=== PATIENT | female | born 1960 | race Caucasian/White ===

== ENCOUNTER 2017-05-29 13:29 | Emergency (ER) | END 2017-05-29 16:21 | disposition home or self-care (01) ==

== ENCOUNTER 2018-07-08 23:34 | Emergency (ER) | payer OTHER ==
[~2018-07-08] VITALS: Ht 172.7 cm; Wt 103.1 kg
[~2018-07-08 23:34] MED LIST: HYDR-4011 PO; NAPR-985 PO
[2018-07-08 23:37] VITALS: Ht 172.7 cm; Wt 103.1 kg
--- NOTE | 2018-07-09 00:10 | ERD ---
ER Documentation Chief Complaint Chief Complaint L leg pain/swelling x2 weeks, worse x1 day HPI This is a 57-year-old woman with a history of left leg ORIF complaining of posterior left leg pain localized mostly to the left popliteal fossa. She states she is noticed some swelling but no redness, no fevers or chills, no chest pain or shortness of breath, no headache or blurry vision. She also has a history of hypertension but has been noncompliant with medications. ROS All systems reviewed and are negative except as per history of present illness. Medications Home Meds Active Scripts Hydrochlorothiazide* (Hydrochlorothiazide*) 25 Mg Tab, 25 MG PO DAILY, #30 TAB Prov:JODI BATISTA MD 07/09/18 Meloxicam* (Meloxicam*) 7.5 Mg Tablet, 7.5 MG PO DAILY PRN for PAIN AND/OR INFLAMMATION, #30 TAB Prov:JODI BATISTA MD 07/09/18 Lidocaine (Lidocaine) 1 Each Adh..patch, 1 EACH TP Q12, #1 BOX Prov:JODI BATISTA MD 07/09/18 Naproxen* (Naprosyn*) 500 Mg Tablet, 500 MG PO BID PRN for PAIN AND/OR INFLAMMATION, #30 TAB Prov:NATHAN RAMIREZ PA-C 05/29/17 Hydrocodone/Acetaminophen (Centrahoma 5-325 Tablet) 1 Each Tablet, 1 TAB PO Q6H PRN for PAIN, #10 TAB Prov:NATHAN RAMIREZ PA-C 05/29/17 Allergies Allergies: Coded Allergies: No Known Allergy (Unverified , 05/29/17) PMhx/Soc Hypertension, prior left leg ORIF History of Surgery: Yes (lt leg surgery for fx lt tibia ) Anesthesia Reaction: No Hx Neurological Disorder: No Hx Respiratory Disorders: No Hx Cardiac Disorders: Yes (htn) Hx Psychiatric Problems: No Hx Miscellaneous Medical Probl: No Hx Alcohol Use: No Hx Substance Use: No Hx Tobacco Use: No FmHx Family History: No diabetes Physical Exam Vitals Vital Signs Date Temp Pulse Resp B/P (MAP) Pulse Ox O2 O2 Flow FiO2 Time Delivery Rate 07/09/18 98.0 73 16 180/90 98 Room Air 01:15 (120) 07/08/18 83 18 206/100 98 Room Air 23:59 (135) 07/08/18 98.2 100 18 233/114 97 23:37 (153) Physical Exam Const: No acute distress, appears comfortable, afebrile Resp: Clear to auscultation bilaterally Cardio: Regular rate and rhythm, no murmurs Skin: No petechiae or rashes, no ecchymosis, hematomas, contusions, or lacerations. Back: No midline or flank tenderness Ext: No cyanosis, or edema. Distal pulses equal bilateral, capillary refill less than 2 seconds, sensation intact distally and equal bilaterally, no gross deformities Neur: Awake and alert x3, no focal deficits or facial asymmetry, moving all extremities normally Psych: Normal Mood and Affect Results 24 hrs Current Medications Medications Dose Sig/Gregory Start Time Status Last (Trade) Ordered Route PRN Stop Time Admin Dose Reason Admin Oxycodone/ 1 tab ONCE ONCE 07/09/18 DC 07/09/18 Acetaminophen PO 00:30 07/09/18 00:22 (Percocet 00:31 (5/ 325)) Ketorolac 30 mg ONCE STAT 07/09/18 DC 07/09/18 Tromethamine IM 00:13 07/09/18 00:22 (Toradol) 00:15 Procedures/MDM IV line was established 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 Patient was afebrile EKG performed, read by me revealed a normal sinus rhythm at 87 bpm, normal axis, right ventricular conduction delay QRS duration 108 ms, no concerning ST elevations or depressions noted Left lower extremity venous ultrasound performed, no DVT noted I administered Toradol 30 mg IM x1 and Percocet 1 tablet p.o. Differential diagnoses considered, included but not limited to acute coronary syndrome, pulmonary embolism, aortic dissection, abdominal aortic aneurysm, sepsis, stroke, meningitis, encephalitis, pneumonia, appendicitis, cholecystitis, bowel obstruction, pyelonephritis, nephrolithiasis, cystitis, as well as metabolic, hematologic, and electrolyte abnormalities. As well as abscess, cellulitis, fractures, and dislocations. Patient feels much better at this time, and vital signs are normal, symptoms have improved. I did give strict instructions to return to the ED if symptoms continue or worsen, patient will otherwise follow-up with primary care physician. Patient understood instructions and agreed to plan. Disclaimer: Inadvertent spelling and grammatical errors are likely due to EHR/dictation software use and do not reflect on the overall quality of patient care. Also, please note that the electronic time recorded on this note does not necessarily reflect the actual time of the patient encounter. Departure Diagnosis: Primary Impression: Hypertension Hypertension type: essential hypertension Qualified Codes: I10 - Essential (primary) hypertension Additional Impression: Left leg pain Condition: Good JODI BATISTA MD July 09, 2018 00:10
[2018-07-09] MEDS ORDERED: KETOROLAC 30 MG INJ IM STA (00:13)
[2018-07-09] MEDS ORDERED: OXYCODONE/ACETAMINOPHEN (5/325) TAB PO ONE (00:30)
[2018-07-09] MEDS ORDERED: HYDR25TA6 PO (00:37)
[2018-07-09] MEDS ORDERED: MELO7.5T38 PO (00:37)
[2018-07-09] MEDS ORDERED: LIDO700A45 TP (00:37)
[2018-07-09 01:15] VITALS: BP 180/90; PULSE 73; RESP 16
== END 2018-07-09 01:15 | disposition home or self-care (01) ==
LOC: E/R 23:34
DX: I10 Essential (primary) hypertension (principal)
CPT/HCPCS: 93971; 96372; J1885; Z7502; Z7610; 93005